=== PATIENT | male | born 1965 | race Caucasian/White ===

== ENCOUNTER 2017-06-25 19:28 | Observation (INO) ==
[2017-06-25 20:01] LABS: Basophils # 0.1 K/mcL (0.0-0.2); Basophils % 1.1 %; Eosinophils # 0.2 K/mcL (0.0-0.6); Eosinophils % 2.2 %; Hematocrit 47.1 % (37.5-50.1); Hemoglobin 15.8 g/dL (12.9-16.9); Immature Granulocytes % 0.3 % (0-4); Lymphocytes # 2.1 K/mcL (0.6-4.6); Lymphocytes % 26.4 %; Mean Corpuscular HGB Conc 33.5 g/dL (31.6-35.5); Mean Corpuscular Volume 86.4 fL (83.0-100.0); Mean Platelet Volume 9.8 fL (9.4-12.4); Monocytes # 0.5 K/mcL (0.0-1.3); Neutrophils # 5.1 K/mcL (1.6-8.9); Platelet Count 269 K/mcL (140-400); Red Blood Count 5.45 M/mcL (4.19-5.50); Red Cell Distribution Width 13.4 % (11.5-14.5)
[2017-06-25 20:13] LABS: BUN/Creatinine Ratio 14 (6-26); Blood Urea Nitrogen 19 mg/dL (8-26); Calcium 9.6 mg/dL (8.6-10.8); Carbon Dioxide 27 mEq/L (19-29); Chloride 104 mEq/L (98-109); Glucose 123 mg/dL (70-99); Osmolality,Calculated 290 (280-300); eGFR For African Americans > 60 (> 60); eGFR For Non-African Americans 55 (> 60)
[2017-06-25 20:14] LABS: Sodium 138 mEq/L (136-145)
--- NOTE | 2017-06-25 20:17 | Emergency Department Note ---
Disposition Clinical Impression: Chest pain, rule out acute myocardial infarction Disposition: Admitted As Inpatient Condition: Good Time of Disposition: 21:19 General Adult HPI - General Chief complaint: ED Chest Pain Stated complaint: Chest Pain Time Seen by Provider: 06/25/17 19:36 Source: patient, family Mode of arrival: ambulatory Limitations: no limitations Nursing Notes Reviewed: Yes Vital Signs Reviewed: Yes - History of Present Illness HPI Narrative: 51-year-old male presenting to the emergency department with chief complaint of chest pain. He states the pain has been progressive over the past 2 months. He states starting yesterday the pain became much worse which caused him to come to the emergency department now. He describes a E cane pain located over his left pectoralis major muscle. It is nonreproducible. He is in no pain right now. He states when he had recurrence of pain today he did not have any nausea, vomiting, or diaphoresis. He states he has no cardiac history. He was a previous smoker which quit approximately 5 years ago. He has no pleuritic chest pain, is not tachycardic and has no history of PEs. He has not been on any recent long trips or travel. The pain does not radiate outside of his back major muscle. He also complains of bilateral lower extremity edema. And shortness of breath. This has also been progressively worse over the past 2 months with the onset of this chest pain. Pain Scale: 5 - Related Data Home Medications Medication Instructions Recorded Confirmed Aspirin 81 mg PO DAILY 06/25/17 06/25/17 Allergies Allergy/AdvReac Type Severity Reaction Status Date / Time No Known Allergies Allergy Verified 06/25/17 21:10 All systems ED: reviewed and negative except as stated. Constitutional: Reports: weight change (weight gain) Cardiovascular: Reports: chest pain, dyspnea on exertion, edema (bilateral lower extremity) Past Medical History - Past Medical History Attestation: Yes The following information was validated with the patient. Source: patient Medical history: Reports: no medical history - Social History Smoking Status: Never smoker Smokeless Tobacco Status: No Alcohol use: Reports: none Drug use: Reports: none Physical Exam - General Limitations: no limitations General appearance: alert, in no apparent distress - Head Head exam: atraumatic, normocephalic - Eye Eye exam: Present: normal appearance - Neck Neck exam: Present: normal inspection - Chest Chest inspection: Present: normal inspection, symmetric chest wall rise. Absent : tenderness, rash - Respiratory Respiratory exam: Present: normal lung sounds bilaterally. Absent: respiratory distress, wheezes, stridor - Cardiovascular Cardiovascular exam: Present: regular rate, normal rhythm, normal heart sounds - Abdominal Exam Abdominal exam: Present: soft, Non-Tender - Extremities Exam Extremities exam: Present: normal inspection, full ROM, pedal edema - Neurological Exam Neurological exam: Present: alert, oriented X3 - Psychiatric Psychiatric exam: Present: normal affect - Skin Skin exam: Present: warm, dry, intact Course Course Narrative: 51-year-old male presenting to the emergency department for progressive chest pain over the past 2 months. He has no cardiac history. Due to the nature of the chest pain and presenting symptoms and will do a cardiac workup with plans to admit the patient for chest pain rule out. - Reevaluation(s) Reevaluation #1: A call to the hospitalist was completed and Dr. Allred accepted the patient. Time: 21:17 Vital Signs Temperature 97.7 F 06/25/17 19:29 Pulse Rate 80 06/25/17 19:29 Respiratory Rate 18 06/25/17 19:29 Blood Pressure 153/102 06/25/17 19:29 O2 Sat by Pulse Oximetry 97 06/25/17 19:29 Temperature 97.5 F L 06/26/17 03:25 Pulse Rate 55 06/26/17 03:25 Respiratory Rate 14 06/26/17 03:25 Blood Pressure 123/78 06/26/17 03:25 O2 Sat by Pulse Oximetry 96 06/26/17 03:25 Oxygen Delivery Oxygen Delivery Room Air Medical Decision Making - [facility] Narrative Medical decision making narrative: Rate of 70 bpm. Normal sinus rhythm. Normal axis. DE 141 ms, QRS 88 ms, QTC [address] segment depression in lead 2. No other ST segment abnormalities or T-wave abnormalities noted. No previous EKG. - Medical Records Medical records reviewed: Yes I reviewed the patient's medical records. - Lab Data Lab results reviewed: Yes I reviewed the patient's lab results. Result diagrams: 06/26/17 01:49 06/26/17 01:49 Lab Results 06/25/17 06/25/17 06/25/17 Range/Units 19:45 19:45 19:45 WBC 7.9 (4.3-11.1) K/mcL RBC 5.45 (4.19-5.50) M/mcL Hgb 15.8 (12.9-16.9) g/dL Hct 47.1 (37.5-50.1) % MCV 86.4 (83.0-100.0) fL MCH 29.0 (28.0-33.3) pg MCHC 33.5 (31.6-35.5) g/dL RDW 13.4 (11.5-14.5) % Plt Count 269 (140-400) K/mcL MPV 9.8 (9.4-12.4) fL Immature Gran % 0.3 (0-4) % Seg Neutrophils % 64.0 % Lymphocytes % 26.4 % Monocytes % 6.0 % Eosinophils % 2.2 % Basophils % 1.1 % Neutrophils # 5.1 (1.6-8.9) K/mcL Lymphocytes # 2.1 (0.6-4.6) K/mcL Monocytes # 0.5 (0.0-1.3) K/mcL Eosinophils # 0.2 (0.0-0.6) K/mcL Basophils # 0.1 (0.0-0.2) K/mcL Sodium 138 (136-145) mEq/L Potassium 4.0 (3.5-4.5) mEq/L Chloride 104 (98-109) mEq/L Carbon Dioxide 27 (19-29) mEq/L BUN 19 (8-26) mg/dL Creatinine 1.36 H (0.72-1.25) mg/dL Est GFR ( Amer) > 60 (> 60) Est GFR (Non-Af Amer) 55 L (> 60) BUN/Creatinine Ratio 14 (6-26) Glucose 123 H (70-99) mg/dL Calculated Osmolality 290 (280-300) Calcium 9.6 (8.6-10.8) mg/dL Troponin I 0.00 (0-0.03) ng/mL B-Natriuretic Peptide (0-100) pg/mL 06/25/17 Range/Units 19:45 WBC (4.3-11.1) K/mcL RBC (4.19-5.50) M/mcL Hgb (12.9-16.9) g/dL Hct (37.5-50.1) % MCV (83.0-100.0) fL MCH (28.0-33.3) pg MCHC (31.6-35.5) g/dL RDW (11.5-14.5) % Plt Count (140-400) K/mcL MPV (9.4-12.4) fL Immature Gran % (0-4) % Seg Neutrophils % % Lymphocytes % % Monocytes % % Eosinophils % % Basophils % % Neutrophils # (1.6-8.9) K/mcL Lymphocytes # (0.6-4.6) K/mcL Monocytes # (0.0-1.3) K/mcL Eosinophils # (0.0-0.6) K/mcL Basophils # (0.0-0.2) K/mcL Sodium (136-145) mEq/L Potassium (3.5-4.5) mEq/L Chloride (98-109) mEq/L Carbon Dioxide (19-29) mEq/L BUN (8-26) mg/dL Creatinine (0.72-1.25) mg/dL Est GFR ( Amer) (> 60) Est GFR (Non-Af Amer) (> 60) BUN/Creatinine Ratio (6-26) Glucose (70-99) mg/dL Calculated Osmolality (280-300) Calcium (8.6-10.8) mg/dL Troponin I (0-0.03) ng/mL B-Natriuretic Peptide 13 (0-100) pg/mL - Radiology Data Radiology results reviewed: Yes I reviewed the patient's radiology results. Attestation Statement - Attestation Attestation: I, Hussain Jerome, examined this patient and my medical decision-making was reviewed with the DATA COORDINATOR/PA/Advanced Practice Nurse/Resident Physician. I agree with the documented findings, disposition and treatment plan as described except to the extent set forth below. 51-year-old male presents with concerns of chest pain. Patient states his pain has been intermittent over the past 2-3 months however over the past 2 weeks he has had increasing shortness of breath with exertion and swelling in his bilateral lower extremities. Patient states he is unable to walk up stairs without becoming significantly short of breath. Patient states the pain is described as a pressure in his sternum that does not radiate. Lungs were clear to auscultation bilaterally. Patient had +1 pitting edema in the bilateral lower extremities. No calf tenderness bilaterally. Initial EKG shows 70 normal sinus rhythm with ST depressions in V2 without consecutive depressions or other elevations. Initial troponin was negative. Patient states he has not followed up with his memory care provider in quite some time. He is a previous tobacco abuser. Patient comfortable with the plan for admission to the hospital for continuation of his care and further evaluation of chest pain to rule out ACS.
[2017-06-25] MEDS ORDERED: Naloxone 0.4 MG/ML INJ IVP PRN (22:35)
[2017-06-25] MEDS ORDERED: Acetaminophen 325 MG TABLET PO PRN (22:35)
[2017-06-25] MEDS ORDERED: Aspirin 325 MG TABLET PO ONE (22:39)
--- NOTE | 2017-06-25 23:00 | Internal Med History&Physical ---
<Miri Wilson M - Last Filed: 06/25/17 23:29> Date of Encounter: 06/25/17 Time of Encounter: 22:56 Assessment and Plan (1) Chest pain, rule out acute myocardial infarction Current visit: Yes Status: Acute Patient presents with left sided chest pain on and off. EKG with ST depression in Lead II, but no other significant changes. Troponin negative at 0.00. Risk factors include obesity and significant smoking history. 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 (2) Family history of diabetes mellitus Current visit: Yes Status: Acute Patient with strong family history of diabetes, with Father, sister and daughter all diagnosed. He has gained weight over the last several years and is concerned about diabetes. Glucose mildly elevated on labs, will check Hgb A1c. (3) Obesity Current visit: Yes Status: Acute Patient reports he gained significant weight after quitting smoking and now feels out of shape. Lifestyle modifications encouraged. Qualifiers: Obesity type: due to excess calories Obesity classification: adult class 2 (BMI 35 ? 39.9) Serious obesity comorbidity presence: without serious comorbidity Body mass index: BMI 37.0-37.9 Qualified Code(s): E66.09 - Other obesity due to excess calories; Z68.37 - Body mass index (BMI) 37.0-37.9, adult (4) History of smoking Current visit: Yes Status: Acute Patient reports he smoked 2PPD for 30 years, quitting 5 years ago. Offered congratulations on quitting and encouraged him to keep it up. (5) Renal insufficiency Current visit: Yes Status: Acute Creatinine of 1.36, GFR of 55. No recent lab results available for comparison. Unclear if this is acute or chronic. Patient denies any known kidney problems. Will check UA and recheck chemistry in the morning. (6) DVT prophylaxis Current visit: Yes Status: Acute anti-embolic stockings lovenox SQ daily Internal Medicine - H&P: HPI Chief complaint: chest pain Admitted From: Emergency Dept Plans for Post Hospital Care: Home History of present illness: Mr. Aguilar is a 51 year old male with no past medical history presents to the emergency department with complaints of chest pain. Patient reports that he has had chest pain on the left side of his chest that comes and goes over the last several months. At first he attributed to indigestion. The chest pain has been occurring more frequently in the last month and today the pain lasted for 30 minutes which concerned him and prompted him to come to the ER. He reports the chest pain occurs at rest. He describes the pain as dull and non- radiating. He does report some shortness of breath on exertion. He reports bilateral feet swelling at the end of the day, which resolves with elevation overnight. He denies any lightheadedness, palpitations, nausea, vomiting, abdominal pain. He does endorse chronic diarrhea that has been going on for years. Evaluation in the emergency department included an EKG which showed normal sinus rhythm heart rate of 70, ST depression in lead 2. Troponin was negative at 0.00, BNP was normal at 13. Creatinine is mildly elevated at 1.36, with GFR 55. Chest x-ray showed no acute cardiopulmonary disease. On exam, patient alert and oriented, in no acute distress. Heart had regular rate and rhythm, lungs are clear bilaterally to auscultation. No peripheral edema, peripheral pulses intact. Past Med Surg Social Fam HX - Past Medical History Medical history: no medical history Psychiatric history: no psych history - Past Surgical History Surgical History: no surgical history - Social History Smoking Status: Former smoker Smokeless Tobacco Status: No Alcohol use: none Drug use: none - Family History Father Living Status: Hx Family Endocrine Disorder: Yes (diabetes) Hx Family Neurologic Disorders: Yes (CVA) Mother Living Status: Cause of : colon cancer Hx Family GI Disorders: Yes Daughter Living Status: Still Living Hx Family Endocrine Disorder: Yes (diabetes) Sister Living Status: Still Living Hx Family Endocrine Disorder: Yes (diabetes) Internal Medicine - H&P: Meds Aspirin 81 mg PO DAILY 06/25/17 [History] Allergies No Known Allergies Allergy (Verified 06/25/17 21:10) All Systems PM: A 10-system review of systems was performed and is negative for pertinent findings except as documented above in the HPI. - Constitutional Constitutional: no chills, no fever(s), no night sweats - EENT Eyes: no change in vision, no discharge, no pain, no photophobia Ears: no ear discharge, no ear pain, no tinnitus Nose, mouth and throat: no dysphagia, no nasal discharge, no neck pain, no sore throat - Cardiovascular Cardiovascular ROS IM: chest pain, dyspnea on exertion, no diaphoresis, no dyspnea, no lightheadedness, no palpitations, no syncope - Respiratory Respiratory: no cough, no dyspnea, no wheezing, no excessive phlegm production - Gastrointestinal Gastrointestinal: diarrhea, no abdominal pain, no hematemesis, no hematochezia, no melena, no nausea, no vomiting - Musculoskeletal Musculoskeletal ROS IM: no numbness, no tingling - Integumentary Integumentary IM: no rash, no unusual bruising - Neurological Neurological ROS: no confusion, no convulsions, no focal weakness, no numbness, no tingling, no tremor(s) - Hematologic/Lymphatic Hematologic/Lymphatic: no easy bruising - Constitutional Vitals: Temp Pulse Resp BP Pulse Ox 0 F L 67 0 0/0 99 06/25/17 21:33 06/25/17 21:23 06/25/17 21:33 06/25/17 21:33 06/25/17 21:23 General appearance: Present: A&O X 3, pleasant, no acute distress - Head Head exam: Present: atraumatic, normocephalic - Eye Eye exam: Present: PERRL, conjuntiva pink, sclera anicteric Pupils: Present: PERRL - Neck Neck exam general surgery: Present: supple, trachea midline. Absent: lymphadenopathy - Respiratory Respiratory exam: Present: CTAB. Absent: accessory muscle use, rales, rhonchi, wheezes - Cardiovascular Cardiovascular exam: Present: RRR, +S1, +S2. Absent: diastolic murmur, gallop, rubs, systolic murmur - GI/Abdominal GI/Abdominal exam: Present: normal bowel sounds, soft, no peritoneal signs. Absent: distended, tenderness - Extremities Exam Extremities exam: Present: warm, radial pulses palpable and symetrical. Absent : calf tenderness, cyanotic, pedal edema - Neurological Exam Neurological exam: Present: CN II-XII intact, oriented X3, no focal deficits. Absent: pronater drift, facial droop, speech deficit - Skin Skin exam: Present: dry, intact Internal Med - H&P Results - Labs CBC & Chem 7: 06/25/17 19:45 06/25/17 19:45 Labs: All Lab Results (24 Hours) 06/25/17 06/25/17 06/25/17 Range/Units 19:45 19:45 19:45 WBC 7.9 (4.3-11.1) K/mcL RBC 5.45 (4.19-5.50) M/mcL Hgb 15.8 (12.9-16.9) g/dL Hct 47.1 (37.5-50.1) % MCV 86.4 (83.0-100.0) fL MCH 29.0 (28.0-33.3) pg MCHC 33.5 (31.6-35.5) g/dL RDW 13.4 (11.5-14.5) % Plt Count 269 (140-400) K/mcL MPV 9.8 (9.4-12.4) fL Immature Gran % 0.3 (0-4) % Seg Neutrophils % 64.0 % Lymphocytes % 26.4 % Monocytes % 6.0 % Eosinophils % 2.2 % Basophils % 1.1 % Neutrophils # 5.1 (1.6-8.9) K/mcL Lymphocytes # 2.1 (0.6-4.6) K/mcL Monocytes # 0.5 (0.0-1.3) K/mcL Eosinophils # 0.2 (0.0-0.6) K/mcL Basophils # 0.1 (0.0-0.2) K/mcL Sodium 138 (136-145) mEq/L Potassium 4.0 (3.5-4.5) mEq/L Chloride 104 (98-109) mEq/L Carbon Dioxide 27 (19-29) mEq/L BUN 19 (8-26) mg/dL Creatinine 1.36 H (0.72-1.25) mg/dL Est GFR ( Amer) > 60 (> 60) Est GFR (Non-Af Amer) 55 L (> 60) BUN/Creatinine Ratio 14 (6-26) Glucose 123 H (70-99) mg/dL Calculated Osmolality 290 (280-300) Calcium 9.6 (8.6-10.8) mg/dL Troponin I 0.00 (0-0.03) ng/mL B-Natriuretic Peptide (0-100) pg/mL 06/25/17 Range/Units 19:45 WBC (4.3-11.1) K/mcL RBC (4.19-5.50) M/mcL Hgb (12.9-16.9) g/dL Hct (37.5-50.1) % MCV (83.0-100.0) fL MCH (28.0-33.3) pg MCHC (31.6-35.5) g/dL RDW (11.5-14.5) % Plt Count (140-400) K/mcL MPV (9.4-12.4) fL Immature Gran % (0-4) % Seg Neutrophils % % Lymphocytes % % Monocytes % % Eosinophils % % Basophils % % Neutrophils # (1.6-8.9) K/mcL Lymphocytes # (0.6-4.6) K/mcL Monocytes # (0.0-1.3) K/mcL Eosinophils # (0.0-0.6) K/mcL Basophils # (0.0-0.2) K/mcL Sodium (136-145) mEq/L Potassium (3.5-4.5) mEq/L Chloride (98-109) mEq/L Carbon Dioxide (19-29) mEq/L BUN (8-26) mg/dL Creatinine (0.72-1.25) mg/dL Est GFR ( Amer) (> 60) Est GFR (Non-Af Amer) (> 60) BUN/Creatinine Ratio (6-26) Glucose (70-99) mg/dL Calculated Osmolality (280-300) Calcium (8.6-10.8) mg/dL Troponin I (0-0.03) ng/mL B-Natriuretic Peptide 13 (0-100) pg/mL - Diagnostic Studies Chest x-ray Additional comments: Chest X-Ray 06/25/17 19:41 IMPRESSION: 1. No acute cardiopulmonary disease. D/ / Juliocesar Robertson MD / Juliocesar Robertson MD Interpreting Provider: Juliocesar Robertson MD <William Allred - Last Filed: 06/26/17 00:01> Date of Encounter: 06/26/17 Internal Medicine - H&P: HPI History of present illness: Mr. Aguialr is a 51 year old male All Systems PM: A 10-system review of systems was performed and is negative for pertinent findings except as documented above in the HPI. - Constitutional Vitals: Temp Pulse Resp BP Pulse Ox 98.0 F 60 15 128/79 96 06/25/17 23:46 06/25/17 23:46 06/25/17 23:46 06/25/17 23:46 06/25/17 23:46 Internal Med - H&P Results - Labs CBC & Chem 7: 06/25/17 19:45 06/25/17 19:45 - Attending Attestation I have personally performed a face to face evaluation on this patient and I discussed the assessment and plan with the nurse practitioner. I have reviewed and agree with the documented care plan. History and Exam by me shows: Patient presented with left-sided chest pain. On exam he is in no acute distress. Heart is regular S1-S2. Plan: Place in observation. Trend troponin. Rule out ACS. Stress test in the morning.
[2017-06-26] MEDS: 0.9 % Sodium Chloride 1,000 ML IVC SCH ×2 (00:01→13:14)
[2017-06-26 00:29] LABS: Bilirubin,Urine Negative (Negative); Blood,Urine Negative (Negative); Clarity,Urine Clear (Clear); Color,Urine Yellow (Yellow); Glucose,Urine (UA) Normal (Normal); Ketones,Urine Negative (Negative); Leukocyte Esterase,Urine Negative (Negative); Nitrite,Urine Negative (Negative); Protein,Urine Negative (Neg-Trace); Specific Gravity,Urine 1.013 (1.010-1.025); Urobilinogen,Urine Normal (Normal)
[2017-06-26 01:56] LABS: Basophils # 0.1 K/mcL (0.0-0.2); Eosinophils # 0.2 K/mcL (0.0-0.6); Hematocrit 41.9 % (37.5-50.1); Hemoglobin 14.3 g/dL (12.9-16.9); Immature Granulocytes % 0.2 % (0-4); Immature Platelets 2.9 % (1.1-6.1); Lymphocytes # 2.6 K/mcL (0.6-4.6); Lymphocytes % 31.6 %; Mean Corpuscular HGB Conc 34.1 g/dL (31.6-35.5); Mean Corpuscular Hemoglobin 29.4 pg (28.0-33.3); Mean Platelet Volume 9.9 fL (9.4-12.4); Monocytes # 0.6 K/mcL (0.0-1.3); Monocytes % 7.2 %; Neutrophils # 4.7 K/mcL (1.6-8.9); Platelet Count 240 K/mcL (140-400); Red Blood Count 4.87 M/mcL (4.19-5.50); Red Cell Distribution Width 13.3 % (11.5-14.5)
[2017-06-26 02:10] LABS: BUN/Creatinine Ratio 17 (6-26); Blood Urea Nitrogen 18 mg/dL (8-26); Calcium 8.8 mg/dL (8.6-10.8); Carbon Dioxide 23 mEq/L (19-29); Chloride 108 mEq/L (98-109); Chol/HDL Ratio 5.5 (0-4.9); Cholesterol 203 mg/dL (< 200); Glucose 96 mg/dL (70-99); HDL Cholesterol 37 mg/dL (40-59); LDL Cholesterol,Calculated 147 mg/dL (0-99); Osmolality,Calculated 288 (280-300); Sodium 138 mEq/L (136-145); Triglycerides 97 mg/dL (< 150); eGFR For African Americans > 60 (> 60); eGFR For Non-African Americans > 60 (> 60)
[2017-06-26 03:05] LABS: Hemoglobin A1C 5.4 %
[2017-06-26] MEDS ORDERED: Regadenoson 0.4 MG/5 ML SYRINGE IVP ONE (05:59)
[2017-06-26] MEDS ORDERED: Aspirin 81 MG TAB.CHEW PO SCH (09:00)
--- NOTE | 2017-06-26 11:56 | Nuclear Medicine Stress Report ---
Low Level Regadenoson Name: Edwardo Aguilar Date of Study: 06/26/2017 Date: 1965 Ht: 68.0 in Medical Record#: [id number] Age: 51 Wt: 244.0 lb Gender: Male Order #: [id number] Location: [facility] Room[facility] Supervising Provider: Sawyer Gonzalez CNP Reading Physician: Brenda Amador DO Ordering Physician: Laura Garber CNP Primary Care Physician: None Stress Technologist: Colby Tabares, ELECTRONICS SPECIALIST, CPFT Customer Account Executive: Selene Berman Indications: Chest Pain Impression: Perfusion imaging was negative for ischemia or infarct. Low level exercise ECG was negative for ischemia. Gated EF = >70%. Stress Test Summary: Stress Test Type: Low level pharmacologic Regadenoson 0.4mg/5ml given IV Baseline Information: Initial Heart Rate: 62 Blood Pressure: 110/72 Stress Information: Stress Time: 4 min 00 sec Test Terminated Due to (primary): As per protocol Maximum Blood Pressure: 140/70 Maximum Heart Rate: 107 Percent Maximum Heart Rate Achieved: 64 Double Product: [id number] METS Reached: 2.1 Symptoms: Shortness of breath Nuclear Summary: SPECT myocardial perfusion imaging using Tc99m Sestamibi given intravenously was performed at rest and following cardiac stress testing. The resting images were obtained following initial dose of 10.7 mCi. Following stress an additional dose of 29.8 mCi was given at peak exercise or 30 seconds post regadenoson infusion. Medication Given: Time Medication Dose Units Route Findings: Stress Note * Resting ECG demonstrated normal sinus rhythm. * No arrhythmias were noted during stress. * Patient had no chest pain during stress. * Low level exercise/ pharmacologic stress ECG is negative for ischemia at level of heart rate achieved. Hemodynamic responses * Normal hemodynamic responses to low level exercise plus pharmacologic stress. Study Quality * Study quality was fair. Gated EF > 70% * Gated EF > 70%. Left Ventricle * The left ventricle is not dilated. TID * No evidence of transient ischemic dilatation. Lung Uptake * There is no evidence of increase lung uptake. NORMALS * Normal wall motion. PERFUSION * Homogeneous rest and stress perfusion without evidence for ischemia or infarct. Updated by Brenda Amador on 06/26/2017 11:48:20 AM electronically signed on 06/26/2017 11:49:15 AM with status of Final
--- NOTE | 2017-06-26 14:07 | Electrocardiograph Report ---
[address] [address] Test Date: 2017-06-25 Pat Name: Edwardo Aguilar Department: 102 Room: 3B13 Gender: M Director Of Student Life: : 1965 Requested By: Hussain Jerome Order Number: [id number] Reading MD: Odin Salinas MD Measurements Intervals Stella Rate: 70 P: 65 GA: 141 QRS: 29 QRSD: 88 T: 44 QT: 359 QTc: 380 Interpretive Statements SINUS RHYTHM LEFT ATRIAL ENLARGEMENT Electronically Signed On 06-26-2017 14:05:36 EDT by Odin Salinas MD
--- NOTE | 2017-06-26 14:29 | Discharge Summary ---
Date of Encounter: 06/26/17 Time of Encounter: 13:00 - Discharge Diagnosis (1) Chest pain, rule out acute myocardial infarction Priority: Primary Status: Resolved Comments: The patient denied chest pain or shortness of breath while admitted. Chest x- ray negative. Stress test negative. Echocardiogram unremarkable. Patient euvolemic on examination. ACS ruled out. (2) DES (acute kidney injury) Priority: Primary Status: Resolved (3) HLD (hyperlipidemia) Priority: Primary Status: Acute Comments: Total cholesterol 203, LDL 147 which warrants the addition of statin to his regimen. Qualifiers: Hyperlipidemia type: unspecified Qualified Code(s): E78.5 - Hyperlipidemia , unspecified (4) Elevated blood pressure reading Priority: Primary Status: Resolved Comments: Elevated blood pressure upon arrival likely secondary to pain. Normotensive without the use of medications. Recommend blood pressure monitoring and following up outpatient. No indication to initiate antihypertensive medications at this time. (5) Family history of diabetes mellitus Priority: Primary Status: Ruled-out Comments: Patient does not have diabetes, A1c 5.4%. (6) Obesity Priority: Secondary Status: Chronic Qualifiers: Obesity type: due to excess calories Obesity classification: adult class 2 (BMI 35 ? 39.9) Serious obesity comorbidity presence: without serious comorbidity Body mass index: BMI 37.0-37.9 Qualified Code(s): E66.09 - Other obesity due to excess calories; Z68.37 - Body mass index (BMI) 37.0-37.9, adult (7) History of smoking Priority: Secondary Status: Chronic Comments: 2 packs per day 30 years, quit 5 years ago. Maintains abstinence. (8) DVT prophylaxis Priority: Primary Status: Acute Comments: Observation patient. Up ad hans. - Discharge Medications Prescriptions: Atorvastatin [Lipitor] 10 mg PO HS #30 tablet Omeprazole [PriLOSEC] 20 mg PO DAILY #30 cap Home Medications: Aspirin 81 mg PO DAILY 06/25/17 [History] Atorvastatin [Lipitor] 10 mg PO HS #30 tablet 06/26/17 [Rx] Omeprazole [PriLOSEC] 20 mg PO DAILY #30 cap 06/26/17 [Rx] Allergies/Adverse Reactions: Allergies No Known Allergies Allergy (Verified 06/25/17 21:10) Procedures/tests Complete & Pending: Procedures Performed prior 72 hours Category Date Time Status NM chey perf SPECT multi [NM] Routine Exams 06/25/17 22:38 Taken ECG 12 lead ECG [ECG] AM 0600 Y 06/26/17 06:00 Ordered EV echocardiogram Routine Y 06/25/17 22:38 Completed SP pharm nuclear stress Routine Y 06/26/17 07:20 Completed Date of admission: 06/25/17 21:26 Primary care physician: Chio Tan CNP Discharging clinician: Laura Garber Anticipated date of discharge: 06/26/17 - Patient Status Disposition: Home, Self-Care Condition: Good Functional capacity at discharge: independent ambulation Overall status at discharge: patient is back to baseline - Discharge Instructions Follow Up With: Chio Tan CNP [Primary Care Provider] - Additional Instructions: Follow-up with primary care provider within one to 2 weeks - Diet and Activity Activity: increase activity as tolerated Diet: low fat, low cholesterol, low salt diet Hospital course: Mr. Aguilar is a 51 year old male without significant past medical history other than former heavy tobacco abuse. Patient presented to the emergency department chief complaint of chest pain. Patient said he had chest pain on the left side of his chest that was intermittent over the past several months. At first, he attributed it to indigestion but that chest pain became more frequent in the last month and on the day of presentation, the chest pain lasted 30 minutes which concerned him and prompted him to present to the emergency department. He reported the chest pain occurred at rest described as dull and nonradiating. He does endorse shortness of breath with exertion. He also endorses bilateral feet swelling at the end of the day which resolves with elevation overnight. Patient denied lightheadedness, palpitations, nausea vomiting, abdominal pain. Patient does endorse chronic diarrhea that has been present for years. Workup in the emergency department revealing EKG with normal sinus rhythm with ST depression in lead 2. Troponin negative. BNP normal. Chest x-ray negative. Patient was admitted to the hospitalist service for further evaluation and management. Mild acute kidney injury resolved overnight. Patient denied chest pain, chest pressure, or shortness of breath throughout this admission. He had an echocardiogram revealed ejection fraction of 60% with mild diastolic dysfunction. Patient was euvolemic on examination throughout this admission without pedal edema or shortness of breath. Patient also had an exercise stress test that was negative for ischemia or infarct and revealed an ejection fraction greater than 70%. ACS ruled out. Regarding risk factor modification, diabetes was ruled out with an A1c of 5.4%. He did have an elevated blood pressure reading upon presentation but was normotensive throughout the rest of his admission. No antihypertensive medications indicated at this time. Cholesterol levels were elevated with an LDL of 147 which warrants the addition of statin to his regimen. Regarding possible causes , patient's reflux is uncontrolled with possible esophageal spasms as a result. He was started on daily PPI and instructed to follow up outpatient. He was discharged home in stable condition with close outpatient follow-up recommended. ITS Impressions Chest X-Ray 06/25/17 19:41 IMPRESSION: 1. No acute cardiopulmonary disease. D/ / Juliocesar Robertson MD / Juliocesar Robertson MD Interpreting Provider: Juliocesar Robertson MD Echocardiogram impressions: LVEF 60%. Normal left ventricular size and systolic function. There is evidence of mild diastolic dysfunction of the left ventricle. Normal right ventricular size and function. No significant valvular dysfunction. No pulmonary hypertension. Low-level Regadenosen impression: Perfusion imaging was negative for ischemia or infarct. Low-level exercise ECG was negative for ischemia. Gated ejection fraction is greater than 70%. - Time Spent with Patient Total time spent providing and/or coordinating discharge services: - Constitutional Vitals: Temp Pulse Resp BP Pulse Ox 97.6 F 58 19 126/79 96 06/26/17 11:22 06/26/17 11:22 06/26/17 11:22 06/26/17 11:22 06/26/17 11:22 General appearance: Present: A&O X 3, pleasant, no acute distress, answers questions appropriately - Head Head exam: Present: atraumatic, normocephalic - Eye Eye exam: Present: PERRL, conjuntiva pink, sclera anicteric Pupils: Present: PERRL - Neck Neck exam general surgery: Present: supple, trachea midline. Absent: lymphadenopathy - Respiratory Respiratory exam: Present: CTAB. Absent: accessory muscle use, rales, respiratory distress, rhonchi, wheezes - Cardiovascular Cardiovascular exam: Present: RRR, +S1, +S2. Absent: diastolic murmur, gallop, rubs, systolic murmur - GI/Abdominal GI/Abdominal exam: Present: normal bowel sounds, soft, no peritoneal signs. Absent: distended, tenderness - Extremities Exam Extremities exam: Present: warm, radial pulses palpable and symetrical. Absent : calf tenderness, cyanotic, pedal edema - Neurological Exam Neurological exam: Present: alert, CN II-XII intact, normal gait, oriented X3, no focal deficits, strengths equal and symetr throughout. Absent: pronater drift, facial droop, speech deficit - Skin Skin exam: Present: dry, intact, normal color, warm
--- NOTE | 2017-06-27 13:48 | Electrocardiograph Report ---
[place] [id number] Test Date: 2017-06-26 Pat Name: Edwardo Aguilar Department: 113 Room: 3B13 Gender: M Clam Grader: SUBHASH : 1965 Requested By: Miri Wilson Order Number: [id number] Reading MD: Odin Salinas MD Measurements Intervals [place] Rate: 56 P: 43 NH: 153 QRS: 21 QRSD: 86 T: 21 QT: 396 QTc: 388 Interpretive Statements SINUS BRADYCARDIA LOW QRS VOLTAGE IN PRECORDIAL LEADS Electronically Signed On 06-27-2017 13:47:12 EDT by Odin Salinas MD
[2017-07-03 11:49] VITALS: BP 126/79
== END 2017-06-26 16:00 | disposition home or self-care (01) ==
LOC: 3BNU 19:28 → EMEROO 19:28 → 3BNU 21:45
PROVIDERS: ADMIT Internal Medicine; ATTEND Nurse Practitioner Family